=== PATIENT | female | born 1995 | race African-American/Black ===

== ENCOUNTER 2020-08-18 06:11 | Emergency (ER) | payer SELFPAY ==
[2020-08-18] MEDS ORDERED: Aspirin Chewable 81 MG TAB ONE ×2 (06:35→07:26)
[2020-08-18] MEDS ORDERED: Magnesium 5 GM/10 ML VIAL ONE (06:38)
[2020-08-18] MEDS ORDERED: Mag-Al Plus 1200 MG/1200 MG/120 MG/30 ML UDCUP ONE (06:39)
[2020-08-18 06:53] LABS: ALT (SGPT) 16 U/L (8-55); AST (SGOT) 15 U/L (5-34); Albumin 4.2 g/dL (3.5-5.0); Alkaline Phosphatase 69 U/L (40-110); Anion Gap 14 mmol/L (10-20); BUN (Urea Nitrogen) 9 mg/dL (7.0-18.7); Bilirubin, Total 0.5 mg/dL (0.2-1.2); CK (CPK) 196 U/L (29-168); Calc. Creatinine Clearance 0 mL/min (70-130); Carbon Dioxide 25 mmol/L (22-29); Chloride 103 mmol/L (98-107); Globulin 3.4 g/dL (2.4-3.5); Glucose 110 mg/dL (70-105); Lipase 27 U/L (8-78); Protein, Total 7.6 g/dL (6.0-8.3); Sodium 138 mmol/L (136-145)
[2020-08-18 06:58] LABS: Manual Diff?? YES; Mean Corpuscular HGB CONC 34.5 g/dL (32.0-36.0); Mean Corpuscular Hemoglobin 30.8 pg (27.0-31.0); Mean Corpuscular Volume 89.1 fL (78.0-98.0); Mean Platelet Volume 6.5 fL (7.4-10.4); Platelet Count 383 thou/uL (130-400); RBC Distribution Width 11.2 % (11.5-14.5); Red Blood Cell (RBC) Count 4.56 mill/uL (4.20-5.40); White Blood Cell (WBC) Count 8.2 thou/uL (4.8-10.8)
[2020-08-18 06:59] LABS: Band 1 % (5-11); Lymphocytes 48 % (21-51); MDiff Complete? YES; Monocytes 5 % (0-10); Neutrophil 46 % (42-75); Platelet Morphology Comment Appears Adequate; RBC Morphology Normal
[2020-08-18 07:03] LABS: BHCG - Serum Negative (NEGATIVE); Pregs Control Bar Appear? YES (CONTROL BAR)
--- NOTE | 2020-08-18 07:35 | RAD ---
Portable frontal chest radiograph: 08/18/2020 COMPARISON: None HISTORY: Sharp chest pain FINDINGS: Lungs are clear. Heart and mediastinal contours appear within normal limits. IMPRESSION: No acute findings.
[2020-08-18 09:53] LABS: Troponin I Less than 0.010 ng/mL (< 0.028)
== END 2020-08-18 10:12 | disposition home or self-care (01) ==
LOC: NAV ERS 06:11 → EDBD 06:11 → NAV ERS 10:12
DX: R07.2 Precordial pain (principal)
CPT/HCPCS: 71045; 80053; 82550; 83690; 84484; 84703; 85025; 93005; 94760; J3475

== ENCOUNTER 2021-05-08 19:52 | Emergency (ER) | payer OTHER | END 2021-05-08 20:30 | disposition left against medical advice (07) | LOC: NAV ERS 19:52 | DX: Z53.21 Procedure and treatment not carried out due to patient leaving prior to being seen by health care provider (principal) ==

== ENCOUNTER 2022-02-01 16:31 | Emergency (ER) | payer OTHER | END 2022-02-01 17:55 | disposition home or self-care (01) | LOC: NAV ERS 16:31 | DX: J06.9 Acute upper respiratory infection, unspecified (principal); Z20.822 Contact with and (suspected) exposure to COVID-19; E11.9 Type 2 diabetes mellitus without complications; Z79.84 Long term (current) use of oral hypoglycemic drugs | CPT/HCPCS: 87807; 99283; U0003; U0005 ==